=== PATIENT | female | born 1965 | race Caucasian/White ===

== ENCOUNTER 2016-05-25 22:12 | Emergency (ER) | payer MEDICAID, OTHER ==
[~2016-05-25] VITALS: Ht 152.4 cm; Wt 77.1 kg
[2016-05-25] MEDS ORDERED: OMEP20CA3 (22:28)
[2016-05-25] MEDS ORDERED: ASPI32ECTA (22:28)
[2016-05-25] MEDS ORDERED: BUPR150T5 (22:28)
[2016-05-25] MEDS ORDERED: METO25TA74 (22:28)
[2016-05-25] MEDS ORDERED: ADV250INH (22:28)
[2016-05-26] MEDS ORDERED: ACETAMINOPH W/CODEINE #3 TAB UD PO ONE (00:45)
[2016-05-26] MEDS ORDERED: ACET30TAB PO (01:15)
[2016-05-26] MEDS ORDERED: KETOROLAC 30 MG/ML VIAL (J1885) IM ONE (01:15)
[2016-05-26] MEDS ORDERED: KETOROLAC 30 MG/ML VIAL (J1885) IV ONE (01:15)
[2016-05-26 01:26] VITALS: BP 145/74
--- NOTE | 2016-05-27 07:59 | REP ---
Clinical: Trauma. Technique: AP, lateral, bilateral oblique views right wrist. Findings: The carpal bones, surrounding osseous structures, soft tissues, and joint spaces are normal. There is no evidence for acute fracture or dislocation. No subcutaneous emphysema or radiodense foreign body. Impression: No acute fracture or dislocation Signed by Diego Guido MD 05/27/2016 07:50 A
--- NOTE | 2016-05-27 08:00 | REP ---
Clinical: Trauma. Technique: Internal rotation, external rotation, and Y view of the right shoulder. Findings: Age-related degenerative changes primarily involving the acromioclavicular joint noted. No acute fracture or dislocation. Glenohumeral joint appears intact. Surrounding soft tissues are unremarkable. Impression: No acute fracture or dislocation. Signed by Diego Guido MD 05/27/2016 07:51 A
== END 2016-05-26 01:42 | disposition home or self-care (01) ==
LOC: M ED 23:13
DX: M25.511 Pain in right shoulder (principal); S63.501A Unspecified sprain of right wrist, initial encounter; M25.561 Pain in right knee; W10.8XXA Fall (on) (from) other stairs and steps, initial encounter; Y92.89 Other specified places as the place of occurrence of the external cause; Y93.89 Activity, other specified; Y99.8 Other external cause status; I10 Essential (primary) hypertension; K21.9 Gastro-esophageal reflux disease without esophagitis; F17.200 Nicotine dependence, unspecified, uncomplicated; Z79.899 Other long term (current) drug therapy; Z79.82 Long term (current) use of aspirin
CPT/HCPCS: 73030; 73110; 96372; 99283; J1885

== ENCOUNTER → 2024-01-05 | Outpatient (REF) | payer OTHER ==
[~2024-01-05] MED LIST: ACET-716 PO; ADV250INH; ASPI-255; BUPR-71; METO1TAB32; OMEP1CAP73
[2024-01-05 12:50] LABS: APPEARANCE, URINE CLEAR (CLEAR); BACTERIA, URINE AUTO 1+ (NEGATIVE); BILIRUBIN, URINE AUTO NEGATIVE (NEGATIVE); BLOOD, URINE BLOOD NEGATIVE (NEGATIVE); COLOR, URINE STRAW (YELLOW); GLUCOSE, URINE (UA) AUTO NEGATIVE (NEGATIVE); KETONE, URINE AUTO NEGATIVE (NEGATIVE); LEUKOCYTE ESTERASE, URINE AUTO NEGATIVE (NEGATIVE); NITRITE, URINE AUTO NEGATIVE (NEGATIVE); PROTEIN, URINE AUTO NEGATIVE (NEGATIVE); RBC, URINE AUTO 0 /HPF (0-3); SPECIFIC GRAVITY URINE AUTO 1.003 (1.002-1.035); SQUAMOUS EPITHELIAL CELL UR AU 2 /HPF (0-6); UROBILINOGEN, URINE AUTO 0.2 mg/dL (0.0-2.0); WBC, URINE AUTO 0 /HPF (0-3)
[2024-01-05 13:41] LABS: CREATININE,RANDOM URINE 13.5 MG/DL; TOTAL PROTEIN,RANDOM URINE < 6.0 MG/DL (0.0-14.0)
[2024-01-05 14:36] LABS: BASO # 0.1 10^3/uL (0.0-0.2); BASO % 0.9 % (0.0-1.0); EOS # 0.1 10^3/uL (0.0-0.5); EOS % 1.3 % (0.0-3.0); HEMATOCRIT 43.2 % (36.0-47.0); HEMOGLOBIN 13.9 g/dl (12.0-15.5); LYMPH # 2.4 10^3/uL (1.5-5.0); LYMPH % 24.5 % (24.0-44.0); MEAN CORPUSCULAR HEMOGLOBIN 29.3 pg (27.0-33.0); MEAN CORPUSCULAR HGB CONC 32.2 g/dl (32.0-36.5); MEAN CORPUSCULAR VOLUME 91.1 fl (80.0-96.0); MONO # 0.6 10^3/uL (0.0-0.8); MONO % 6.4 % (2.0-8.0); NEUTROPHILS # 6.4 10^3/uL (1.5-8.5); NEUTROPHILS % 66.6 % (36.0-66.0); PLATELET COUNT, AUTOMATED 265 10^3/uL (150-450); RED BLOOD COUNT 4.74 10^6/uL (4.00-5.40); WHITE BLOOD COUNT 9.6 10^3/uL (4.0-10.0)
[2024-01-05 14:57] LABS: ERYTHROCYTE SEDIMENTATION RATE 33 mm/hr (0-30)
[2024-01-05 15:01] LABS: COMPLEMENT C3 185.5 MG/DL (90.0-170.0); COMPLEMENT C4 12.9 MG/DL (12-36); CPK CREATINE PHOSPHOKINASE 113 U/L (34-145)
[2024-01-05 15:02] LABS: ALBUMIN 4.2 G/DL (3.2-5.2); ALKALINE PHOSPHATASE 59 U/L (35-104); ALT/SGPT 53 U/L (7.0-40); AST/SGOT 23 U/L (<34); BILIRUBIN,DIRECT 0.1 MG/DL (<0.4); BILIRUBIN,TOTAL 0.6 MG/DL (0.3-1.2); BLOOD UREA NITROGEN 13 MG/DL (9-23); CALCIUM LEVEL 11.1 MG/DL (8.3-10.6); CARBON DIOXIDE LEVEL 30 MMOL/L (20-31); CHLORIDE LEVEL 99 MMOL/L (98-107); CREATININE FOR GFR 0.66 MG/DL (0.55-1.30); GLOMERULAR FILTRATION RATE > 60.0 (>45); GLUCOSE, FASTING 132 MG/DL (74-106); IRON (FE) 92 UG/DL (50-170); MAGNESIUM LEVEL 1.7 MG/DL (1.8-2.4); PERCENT SATURATION 25.7 % (13.2-45.0); PHOSPHORUS LEVEL 2.8 MG/DL (2.4-5.1); SODIUM LEVEL 136 MMOL/L (136-145); TOTAL IRON BINDING CAPACITY 358 UG/DL (250-425); TOTAL PROTEIN 7.9 G/DL (5.7-8.2)
[2024-01-05 15:03] LABS: VITAMIN B12 LEVEL 983 PG/ML (211-911)
[2024-01-05 15:04] LABS: FERRITIN 185.1 NG/ML (7.3-270.7); TOTAL 25(OH) VITAMIN D 47.3 NG/ML (20.0-100.0)
[2024-01-06 11:58] LABS: HSV 1 IGG TYPE SPECIFIC < 0.90 index (<0.90); HSV 2 IGG TYPE SPECIFIC < 0.90 index (<0.90)
[2024-01-08 22:03] LABS: Antimyeloperxidase(MPO) Abs < 1.0 AI (<1.0); Antiproteinase 3 (PR-3) Abs < 1.0 AI (<1.0)
[2024-01-10 22:07] LABS: COMPLEMENT TOTAL (CH50) 63 U/mL (31-60)
== END ==
LOC: M SFHCRHEU 10:17
PROVIDERS: ATTEND Internal Medicine
DX: R76.8 Other specified abnormal immunological findings in serum (principal); M79.10 Myalgia, unspecified site; J34.0 Abscess, furuncle and carbuncle of nose; M25.50 Pain in unspecified joint

== ENCOUNTER → 2024-05-13 | Outpatient (REF) | payer OTHER ==
[~2024-05-13] MED LIST changes: -ADV250INH; +ADVA1AER9
== END ==
LOC: M SFHCRHEU 12:21
PROVIDERS: ATTEND Internal Medicine
DX: R79.89 Other specified abnormal findings of blood chemistry (principal)